=== PATIENT | male | born 2000 | race Caucasian/White ===

== ENCOUNTER 2020-08-01 11:00 | Emergency (ER) | payer OTHER ==
[~2020-08-01] VITALS: Ht 185.4 cm; Wt 111.1 kg
[2020-08-01] MEDS ORDERED: ISOVUE-370 76% 100ML VIAL As Ordered ONE (12:09)
[2020-08-01 12:12] LABS: BASO # 0.1 10^3/uL (0.0-0.2); EOS # 0.3 10^3/uL (0.0-0.5); EOS % 5.3 % (0.0-3.0); HEMATOCRIT 46.9 % (42.0-52.0); HEMOGLOBIN 15.6 g/dl (13.5-17.5); LYMPH # 1.2 10^3/uL (1.5-5.0); LYMPH % 19.1 % (24.0-44.0); MEAN CORPUSCULAR HGB CONC 33.3 g/dl (32.0-36.5); MEAN CORPUSCULAR VOLUME 84.2 fl (80.0-96.0); MONO # 0.6 10^3/uL (0.0-0.8); MONO % 9.9 % (2.0-8.0); NEUTROPHILS % 64.4 % (36.0-66.0); PLATELET COUNT, AUTOMATED 183 10^3/uL (150-450); RED BLOOD COUNT 5.57 10^6/uL (4.30-6.10); WHITE BLOOD COUNT 6.2 10^3/uL (4.0-10.0)
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
[2020-08-01 12:45] LABS: ALBUMIN 4.4 GM/DL (3.2-5.2); ALT/SGPT 94 U/L (12-78); AMYLASE 51 U/L (25-115); BILIRUBIN,DIRECT 0.3 MG/DL (0.0-0.2); BILIRUBIN,TOTAL 1.7 MG/DL (0.2-1.0); LIPASE 90 U/L (73-393); TOTAL PROTEIN 7.6 GM/DL (6.4-8.2)
[2020-08-01 13:18] LABS: MONO REFLEX EBV COMP NEGATIVE (NEGATIVE)
[2020-08-01 14:15] LABS: HEPATITIS B SURFACE ANTIGEN NEGATIVE (NEGATIVE)
[2020-08-01 14:43] LABS: HEPATITIS B CORE ANTIBODY IGM NEGATIVE (NEGATIVE)
[2020-08-01 14:45] LABS: HEPATITIS A ANTIBODY IGM NEGATIVE (NEGATIVE)
--- NOTE | 2020-08-01 14:48 | REP ---
INDICATION: inc bili and LFTs, check liver, gb, spleen please. COMPARISON: None. TECHNIQUE: Transabdominal ultrasound FINDINGS: Multiple ultrasonographic images of the liver show the hepatic parenchymal echo pattern to be within normal limits. There is no intrahepatic or extrahepatic ductal dilatation. The common bile duct measures 3 mm. Multiple ultrasonographic images of the gallbladder show no abnormal echogenic foci within the gallbladder lumen, gallbladder wall thickening, or pericholecystic edema. The imaged portion of the pancreas is within normal limits. The spleen measures 15.3 x 13.9 x5.7 cm. No splenic or perisplenic abnormalities are noted. The right kidney measures 10 x 6.3 x 5.2 cm. The renal cortical echotexture is within normal limits. Corticomedullary differentiation is preserved. There is no hydronephrosis. There are no masses. The left kidney measures 11.9 x 4.9 x 4 cm. The renal cortical echotexture is within normal limits. Corticomedullary differentiation is preserved. There is no hydronephrosis. There are no masses. The imaged portion of the abdominal aorta is within normal limits. There is no evidence of free fluid. IMPRESSION: Complete abdominal ultrasonography is within normal limits <Electronically signed by Neymar Bhatt > 08/01/20 [id number]
[2020-08-01 15:22] VITALS: BP 133/84
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
[2020-08-04 13:09] LABS: EBV VIRAL CAPSID AG IgM <36.0 U/mL (0.0-35.9)
== END 2020-08-01 15:24 | disposition home or self-care (01) ==
LOC: M ED 11:00
DX: S09.90XA Unspecified injury of head, initial encounter (principal); V43.52XA Car driver injured in collision with other type car in traffic accident, initial encounter; Y92.9 Unspecified place or not applicable; Y93.9 Activity, unspecified; Y99.9 Unspecified external cause status; F51.9 Sleep disorder not due to a substance or known physiological condition, unspecified; E80.6 Other disorders of bilirubin metabolism; R74.02 Elevation of levels of lactic acid dehydrogenase [LDH]; B35.4 Tinea corporis
CPT/HCPCS: 70450; 72125; 74177; 76700; 80047; 80076; 82150; 83690; 85025; 86308; 86664; 86665; 86705; 86709; 86803; 87340; 99284; Q9967

== ENCOUNTER 2020-08-04 22:34 | Emergency (ER) | payer OTHER ==
[~2020-08-04] VITALS: Ht 185.4 cm; Wt 111.2 kg
[2020-08-04] MEDS ORDERED: TOLN1CRE23 TOP (22:53)
[2020-08-05] MEDS ORDERED: ONDANSETRON 4MG/2ML VIAL IV ONE (00:55)
[2020-08-05] MEDS ORDERED: GI COCKTAIL 50ML BTL(HYOSCYAMINE/MAALOX/LIDOCAINE VISCOUS)(1:3:1) PO ONE (00:55)
[2020-08-05] MEDS ORDERED: NS 1,000 ML IV ONE (00:55)
[2020-08-05] MEDS ORDERED: DICYCLOMINE 10 MG CAP PO ONE (00:55)
[2020-08-05 01:16] LABS: BASO # 0.1 10^3/uL (0.0-0.2); BASO % 0.9 % (0.0-1.0); EOS # 0.2 10^3/uL (0.0-0.5); EOS % 4.4 % (0.0-3.0); LYMPH # 1.1 10^3/uL (1.5-5.0); LYMPH % 20.9 % (24.0-44.0); MEAN CORPUSCULAR HEMOGLOBIN 27.7 pg (27.0-33.0); MEAN CORPUSCULAR HGB CONC 33.3 g/dl (32.0-36.5); MEAN CORPUSCULAR VOLUME 83.2 fl (80.0-96.0); MONO # 0.5 10^3/uL (0.0-0.8); MONO % 9.2 % (2.0-8.0); NEUTROPHILS # 3.5 10^3/uL (1.5-8.5); NEUTROPHILS % 64.6 % (36.0-66.0); PLATELET COUNT, AUTOMATED 178 10^3/uL (150-450); RED BLOOD COUNT 5.77 10^6/uL (4.30-6.10); WHITE BLOOD COUNT 5.5 10^3/uL (4.0-10.0)
[2020-08-05 01:52] LABS: ALBUMIN 4.4 GM/DL (3.2-5.2); BILIRUBIN,DIRECT 0.3 MG/DL (0.0-0.2); BILIRUBIN,TOTAL 1.7 MG/DL (0.2-1.0); TOTAL PROTEIN 8.1 GM/DL (6.4-8.2)
[2020-08-05] MEDS ORDERED: ONDA4TAB6 PO (02:10)
--- NOTE | 2020-08-05 03:12 | REPVR ---
PROCEDURE INFORMATION: Exam: XR Complete Acute Abdomen Series Exam date and time: 08/05/20 (1:49am) Age: 20 years old Clinical indication: Diffuse abdominal pain and vomiting TECHNIQUE: Imaging protocol: XR complete acute abdomen series, including 2 or more views of the abdomen and a single view chest COMPARISON: CT ABDOMEN PELVIS of 08/01/20 FINDINGS: Accompanying chest film demonstrates clear lung somers. Normal heart size. No focal infiltrates. Flat and upright abdominal films demonstrate a nonspecific and non-obstructed bowel gas pattern. No free air. No abnormal mass. Splenomegaly (also seen on recent CT scan). IMPRESSION: No acute findings. Clear lung somers. No definite bowel obstruction. No free air. Splenomegaly. Electronically signed by: Perlita Smith On 08/05/2020 03:12:09 AM
[2020-08-05 03:15] VITALS: BP 137/81
[2020-08-05] MEDS ORDERED: DICY10SO PO (03:20)
[2020-08-05] MEDS ORDERED: PEPC1TAB5 PO (03:20)
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
== END 2020-08-05 03:50 | disposition home or self-care (01) ==
LOC: M ED 22:34
DX: K58.9 Irritable bowel syndrome, unspecified (principal); R19.7 Diarrhea, unspecified; R16.1 Splenomegaly, not elsewhere classified
CPT/HCPCS: 74021; 80047; 80076; 83690; 85025; 99284; J2405

== ENCOUNTER 2021-12-18 21:26 | Emergency (ER) | payer OTHER ==
[~2021-12-18] VITALS: Ht 182.9 cm; Wt 118.2 kg
[~2021-12-18 21:26] MED LIST: DICY10SO PO; ONDA4TAB6 PO; PEPC1TAB5 PO; TOLN1CRE23 TOP
[2021-12-19 01:06] LABS: BASO % 0.4 % (0.0-1.0); EOS # 0.1 10^3/uL (0.0-0.5); EOS % 1.6 % (0.0-3.0); HEMATOCRIT 44.8 % (42.0-52.0); HEMOGLOBIN 14.8 g/dl (13.5-17.5); LYMPH # 1.6 10^3/uL (1.5-5.0); LYMPH % 19.3 % (24.0-44.0); MEAN CORPUSCULAR HEMOGLOBIN 28.1 pg (27.0-33.0); MEAN CORPUSCULAR VOLUME 85.2 fl (80.0-96.0); MONO # 0.5 10^3/uL (0.0-0.8); NEUTROPHILS % 72.3 % (36.0-66.0); PLATELET COUNT, AUTOMATED 192 10^3/uL (150-450); RED BLOOD COUNT 5.26 10^6/uL (4.30-6.10); WHITE BLOOD COUNT 8.3 10^3/uL (4.0-10.0)
[2021-12-19 01:43] LABS: BLOOD UREA NITROGEN 12 MG/DL (7-18); CALCIUM LEVEL 9.2 MG/DL (8.5-10.1); CARBON DIOXIDE LEVEL 26 MEQ/L (21-32); CHLORIDE LEVEL 106 MEQ/L (98-107); CREATININE FOR GFR 0.85 MG/DL (0.70-1.30); ETHYL ALCOHOL (ETHANOL) 0.036 % (0.000-0.010); GLOMERULAR FILTRATION RATE > 60.0 (>60); GLUCOSE, FASTING 99 MG/DL (70-100); POTASSIUM SERUM 4.4 MEQ/L (3.5-5.1); SODIUM LEVEL 140 MEQ/L (136-145)
[2021-12-19 02:57] VITALS: BP 140/76
== END 2021-12-19 03:22 | disposition home or self-care (01) ==
LOC: M ED 21:26
DX: F10.20 Alcohol dependence, uncomplicated (principal); R11.10 Vomiting, unspecified; Y90.0 Blood alcohol level of less than 20 mg/100 ml

== ENCOUNTER 2022-02-12 10:52 | Emergency (ER) | payer OTHER ==
[2022-02-12 15:05] LABS: BASO % 0.2 % (0.0-1.0); EOS % 0.4 % (0.0-3.0); HEMATOCRIT 42.5 % (42.0-52.0); HEMOGLOBIN 14.7 g/dl (13.5-17.5); LYMPH # 0.9 10^3/uL (1.5-5.0); LYMPH % 9.5 % (24.0-44.0); MEAN CORPUSCULAR HEMOGLOBIN 28.7 pg (27.0-33.0); MEAN CORPUSCULAR HGB CONC 34.6 g/dl (32.0-36.5); MEAN CORPUSCULAR VOLUME 82.8 fl (80.0-96.0); MONO # 0.7 10^3/uL (0.0-0.8); MONO % 7.2 % (2.0-8.0); NEUTROPHILS # 7.6 10^3/uL (1.5-8.5); NEUTROPHILS % 82.1 % (36.0-66.0); PLATELET COUNT, AUTOMATED 157 10^3/uL (150-450); RED BLOOD COUNT 5.13 10^6/uL (4.30-6.10); WHITE BLOOD COUNT 9.3 10^3/uL (4.0-10.0)
[2022-02-12 17:09] LABS: AMPHETAMINES LEVEL URINE NEGATIVE (NEGATIVE); BARBITURATES URINE NEGATIVE (NEGATIVE); BENZODIAZEPINES URINE NEGATIVE (NEGATIVE); CANNABINOIDS URINE NEGATIVE (NEGATIVE); COCAINE METABOLITE URINE NEGATIVE (NEGATIVE); METHADONE URINE NEGATIVE (NEGATIVE); OPIATES URINE NEGATIVE (NEGATIVE); PHENCYCLIDINE URINE NEGATIVE (NEGATIVE)
[2022-02-12 17:55] VITALS: BP 140/76
== END 2022-02-12 17:55 | disposition home or self-care (01) ==
LOC: EDBD 10:52 → M ED 10:52
DX: Z04.1 Encounter for examination and observation following transport accident (principal); R55 Syncope and collapse; R11.10 Vomiting, unspecified; V47.5XXA Car driver injured in collision with fixed or stationary object in traffic accident, initial encounter; R56.9 Unspecified convulsions

== ENCOUNTER 2022-06-18 06:59 | Emergency (ER) | payer OTHER ==
[~2022-06-18] VITALS: Ht 182.9 cm; Wt 125.0 kg
[2022-06-18] MEDS ORDERED: KEPP500T13 PO (07:27)
[2022-06-18 07:30] LABS: BASO # 0.1 10^3/uL (0.0-0.2); BASO % 1.1 % (0.0-1.0); EOS # 0.3 10^3/uL (0.0-0.5); EOS % 5.7 % (0.0-3.0); HEMATOCRIT 51.3 % (42.0-52.0); LYMPH # 1.5 10^3/uL (1.5-5.0); LYMPH % 32.1 % (24.0-44.0); MEAN CORPUSCULAR HGB CONC 33.1 g/dl (32.0-36.5); MEAN CORPUSCULAR VOLUME 84.4 fl (80.0-96.0); MONO # 0.5 10^3/uL (0.0-0.8); MONO % 9.6 % (2.0-8.0); NEUTROPHILS # 2.4 10^3/uL (1.5-8.5); NEUTROPHILS % 51.1 % (36.0-66.0); PLATELET COUNT, AUTOMATED 151 10^3/uL (150-450); RED BLOOD COUNT 6.08 10^6/uL (4.30-6.10); WHITE BLOOD COUNT 4.7 10^3/uL (4.0-10.0)
[2022-06-18 07:57] LABS: ETHYL ALCOHOL (ETHANOL) 0.007 % (0.000-0.010)
[2022-06-18 08:13] LABS: ALBUMIN 4.2 G/DL (3.2-5.2); ALKALINE PHOSPHATASE 97 U/L (46-116); ALT/SGPT 262 U/L (7.0-40); AST/SGOT 64 U/L (<34); BILIRUBIN,TOTAL 0.8 MG/DL (0.3-1.2); BLOOD UREA NITROGEN 13 MG/DL (9-23); CALCIUM LEVEL 9.2 MG/DL (8.5-10.1); CARBON DIOXIDE LEVEL 28 MMOL/L (20-31); CHLORIDE LEVEL 103 MMOL/L (98-107); CREATININE FOR GFR 0.96 MG/DL (0.70-1.30); GLOMERULAR FILTRATION RATE > 60.0 (>60); GLUCOSE, FASTING 157 MG/DL (60-100); POTASSIUM SERUM 4.5 MMOL/L (3.5-5.1); SODIUM LEVEL 138 MMOL/L (136-145); TOTAL PROTEIN 7.6 G/DL (5.7-8.2)
[2022-06-18 09:35] VITALS: BP 140/74
== END 2022-06-18 09:49 | disposition home or self-care (01) ==
LOC: M ED 06:59 → EDBD 06:59 → M ED 09:49
DX: Z04.1 Encounter for examination and observation following transport accident (principal); R56.9 Unspecified convulsions; Z79.899 Other long term (current) drug therapy

== ENCOUNTER 2022-12-25 13:39 | Emergency (ER) | payer OTHER ==
[~2022-12-25] VITALS: Ht 182.9 cm; Wt 124.5 kg
[~2022-12-25 13:39] MED LIST changes: +KEPP500T13 PO
[2022-12-25] MEDS ORDERED: DIVA500T94 (13:56)
[2022-12-25] MEDS ORDERED: LEVE500T88 (13:56)
[2022-12-25] MEDS ORDERED: ONDANSETRON 4MG ORAL DISINTEGRATING TAB PO ONE (14:55)
[2022-12-25] MEDS ORDERED: ACETAMINOPHEN TAB 650MG DOSE (2X325MG) PO ONE (14:55)
[2022-12-25 14:56] LABS: VENOUS BASE EXCESS -2.2 (-2.0-2.0); VENOUS HCO3 24.6 MMOL/L (23.0-27.0); VENOUS O2 SATURATION 61.9 % (60.0-80.0); VENOUS PARTIAL PRESSURE CO2 49.5 mmHg (38.0-50.0); VENOUS PARTIAL PRESSURE O2 35.1 mmHg (30.0-50.0); VENOUS PH 7.315 UNITS (7.330-7.430); VENOUS STANDARD HCO3 21.7 MMOL/L; VENOUS TOTAL CO2 26.2 MMOL/L (24.0-28.0)
[2022-12-25 14:57] LABS: IONIZED CALCIUM 4.7 MG/DL (4.5-5.3)
[2022-12-25 15:03] LABS: BASO # 0.1 10^3/uL (0.0-0.2); BASO % 0.8 % (0.0-1.0); EOS # 0.2 10^3/uL (0.0-0.5); EOS % 2.6 % (0.0-3.0); HEMATOCRIT 45.8 % (42.0-52.0); HEMOGLOBIN 15.8 g/dl (13.5-17.5); MEAN CORPUSCULAR HEMOGLOBIN 28.6 pg (27.0-33.0); MEAN CORPUSCULAR HGB CONC 34.5 g/dl (32.0-36.5); MONO # 0.8 10^3/uL (0.0-0.8); MONO % 10.5 % (2.0-8.0); NEUTROPHILS # 5.5 10^3/uL (1.5-8.5); NEUTROPHILS % 72.8 % (36.0-66.0); PLATELET COUNT, AUTOMATED 131 10^3/uL (150-450); RED BLOOD COUNT 5.52 10^6/uL (4.30-6.10); WHITE BLOOD COUNT 7.6 10^3/uL (4.0-10.0)
[2022-12-25 15:11] LABS: HEMOGLOBIN A1c 10.2 % (4.0-6.0)
[2022-12-25 15:24] LABS: APPEARANCE, URINE CLEAR (CLEAR); BACTERIA, URINE AUTO NEGATIVE (NEGATIVE); BILIRUBIN, URINE AUTO NEGATIVE (NEGATIVE); BLOOD, URINE BLOOD NEGATIVE (NEGATIVE); COLOR, URINE YELLOW (YELLOW); GLUCOSE, URINE (UA) AUTO 3+ mg/dL (NEGATIVE); KETONE, URINE AUTO TRACE mg/dL (NEGATIVE); LEUKOCYTE ESTERASE, URINE AUTO NEGATIVE (NEGATIVE); NITRITE, URINE AUTO NEGATIVE (NEGATIVE); PROTEIN, URINE AUTO 1+ mg/dL (NEGATIVE); RBC, URINE AUTO 0 /HPF (0-3); SPECIFIC GRAVITY URINE AUTO 1.033 (1.002-1.035); SQUAMOUS EPITHELIAL CELL UR AU 0 /HPF (0-6); UROBILINOGEN, URINE AUTO 0.2 mg/dL (0.0-2.0); WBC, URINE AUTO 1 /HPF (0-3)
[2022-12-25] MEDS ORDERED: NS 1,000 ML IV ONE (15:25)
[2022-12-25 15:29] LABS: ETHYL ALCOHOL (ETHANOL) 0.005 % (0.000-0.010); VALPROIC ACID (DEPAKOTE) < 3.0 UG/ML (50.0-100.0)
[2022-12-25 15:31] LABS: ALBUMIN 4.1 G/DL (3.2-5.2); ALKALINE PHOSPHATASE 146 U/L (46-116); ALT/SGPT 537 U/L (7.0-40); AST/SGOT 224 U/L (<34); BILIRUBIN,DIRECT 0.4 MG/DL (<0.4); BILIRUBIN,TOTAL 1.3 MG/DL (0.3-1.2); BLOOD UREA NITROGEN 14 MG/DL (9-23); CALCIUM LEVEL 8.9 MG/DL (8.5-10.1); CARBON DIOXIDE LEVEL 27 MMOL/L (20-31); CHLORIDE LEVEL 99 MMOL/L (98-107); CREATININE FOR GFR 0.84 MG/DL (0.70-1.30); GLOMERULAR FILTRATION RATE > 60.0 (>60); GLUCOSE, FASTING 369 MG/DL (60-100); MAGNESIUM LEVEL 2.2 MG/DL (1.8-2.4); POTASSIUM SERUM 4.5 MMOL/L (3.5-5.1); SODIUM LEVEL 136 MMOL/L (136-145); TOTAL PROTEIN 7.1 G/DL (5.7-8.2)
[2022-12-25 15:52] LABS: AMPHETAMINES LEVEL URINE NEGATIVE (NEGATIVE); BARBITURATES URINE NEGATIVE (NEGATIVE); BENZODIAZEPINES URINE NEGATIVE (NEGATIVE); CANNABINOIDS URINE NEGATIVE (NEGATIVE); COCAINE METABOLITE URINE NEGATIVE (NEGATIVE); METHADONE URINE NEGATIVE (NEGATIVE); OPIATES URINE NEGATIVE (NEGATIVE); PHENCYCLIDINE URINE NEGATIVE (NEGATIVE)
[2022-12-25] MEDS ORDERED: VALPROATE SOD INJ 1,000 MG in D5W 50 ML IV ONE (16:25)
[2022-12-25] MEDS ORDERED: METF-839 PO (18:31)
[2022-12-25] MEDS ORDERED: DEPA1TAB3 PO (18:31)
[2022-12-25] MEDS ORDERED: metFORMIN (GLUCOPHAGE) 500MG TAB PO ONE (18:35)
[2022-12-25 18:39] LABS: ACETONE/KETONE 0.22 MMOL/L (0.02-0.27)
[2022-12-25 18:45] VITALS: BP 142/63; TEMP 97.2; O2SAT 98
[2022-12-30] MEDS ORDERED: METF10004 PO (14:28)
== END 2022-12-25 18:55 | disposition home or self-care (01) ==
LOC: EDBD 13:39 → M ED 13:39
DX: G40.909 Epilepsy, unspecified, not intractable, without status epilepticus (principal); E11.9 Type 2 diabetes mellitus without complications; Z79.4 Long term (current) use of insulin; Z79.899 Other long term (current) drug therapy

== ENCOUNTER 2023-03-13 11:41 | Emergency (ER) | payer OTHER ==
[~2023-03-13] VITALS: Ht 182.9 cm; Wt 118.2 kg
[~2023-03-13 11:41] MED LIST changes: +DEPA1TAB3 PO; +DIVA500T94; +LEVE500T88; +METF-839 PO; +METF10004 PO
[2023-03-13 11:49] VITALS: TEMP 97.2
[2023-03-13] MEDS ORDERED: TRUL0.5I SC (11:56)
[2023-03-13] MEDS ORDERED: VIMP100T PO (11:56)
[2023-03-13 12:58] LABS: HEMOGLOBIN 16.3 g/dl (13.5-17.5); MEAN CORPUSCULAR HEMOGLOBIN 28.2 pg (27.0-33.0); PLATELET COUNT, AUTOMATED 179 10^3/uL (150-450); RED BLOOD COUNT 5.78 10^6/uL (4.30-6.10); WHITE BLOOD COUNT 6.1 10^3/uL (4.0-10.0)
[2023-03-13 13:27] LABS: ETHYL ALCOHOL (ETHANOL) 0.004 % (0.000-0.010)
[2023-03-13 13:29] LABS: BLOOD UREA NITROGEN 13 MG/DL (9-23); CARBON DIOXIDE LEVEL 29 MMOL/L (20-31); CHLORIDE LEVEL 106 MMOL/L (98-107); CREATININE FOR GFR 0.86 MG/DL (0.70-1.30); GLOMERULAR FILTRATION RATE > 60.0 (>60); GLUCOSE, FASTING 118 MG/DL (60-100); POTASSIUM SERUM 4.5 MMOL/L (3.5-5.1); SODIUM LEVEL 141 MMOL/L (136-145)
[2023-03-13 13:56] LABS: AMPHETAMINES LEVEL URINE NEGATIVE (NEGATIVE); BARBITURATES URINE NEGATIVE (NEGATIVE); BENZODIAZEPINES URINE NEGATIVE (NEGATIVE); CANNABINOIDS URINE NEGATIVE (NEGATIVE); COCAINE METABOLITE URINE NEGATIVE (NEGATIVE); METHADONE URINE NEGATIVE (NEGATIVE); OPIATES URINE NEGATIVE (NEGATIVE); PHENCYCLIDINE URINE NEGATIVE (NEGATIVE)
[2023-03-13 14:30] VITALS: BP 130/61; O2SAT 96
[2023-03-13] MEDS ORDERED: LEVE500T88 PO (14:42)
[2023-03-13] MEDS ORDERED: KEPP750T3 PO (15:18)
[2023-03-13] MEDS ORDERED: KEPP500T13 PO (15:18)
[2023-03-18 01:07] LABS: LACOSAMIDE LEVEL 3.6 ug/mL (5.0-10.0); LEVETIRACETAM (KEPPRA) 8.6 ug/mL (10.0-40.0)
== END 2023-03-13 15:06 | disposition home or self-care (01) ==
LOC: EDBD 11:41 → M ED 11:41
DX: G40.909 Epilepsy, unspecified, not intractable, without status epilepticus (principal); S01.81XA Laceration without foreign body of other part of head, initial encounter; Y92.009 Unspecified place in unspecified non-institutional (private) residence as the place of occurrence of the external cause; Y93.9 Activity, unspecified; Y99.9 Unspecified external cause status; Z79.810 Long term (current) use of selective estrogen receptor modulators (SERMs); Z79.899 Other long term (current) drug therapy

== ENCOUNTER 2023-07-09 12:46 | Emergency (ER) | payer OTHER ==
[~2023-07-09] VITALS: Ht 185.4 cm; Wt 110.3 kg
[~2023-07-09 12:46] MED LIST changes: +KEPP750T3 PO; +LEVE500T88 PO; +TRUL0.5I SC; +VIMP100T PO
[2023-07-09 13:27] LABS: HEMOGLOBIN 16.5 g/dl (13.5-17.5); RED BLOOD COUNT 5.81 10^6/uL (4.30-6.10)
[2023-07-09 13:28] LABS: BASO % 0.8 % (0.0-1.0); HEMATOCRIT 48.5 % (42.0-52.0); MEAN CORPUSCULAR HEMOGLOBIN 28.4 pg (27.0-33.0); MEAN CORPUSCULAR VOLUME 83.5 fl (80.0-96.0); MONO % 7.8 % (2.0-8.0); NEUTROPHILS % 66.1 % (36.0-66.0); PLATELET COUNT, AUTOMATED 171 10^3/uL (150-450)
[2023-07-09 13:29] LABS: BASO # 0.1 10^3/uL (0.0-0.2); EOS # 0.4 10^3/uL (0.0-0.5); LYMPH # 1.2 10^3/uL (1.5-5.0); MONO # 0.5 10^3/uL (0.0-0.8)
[2023-07-09 13:55] LABS: BLOOD UREA NITROGEN 10 MG/DL (9-23); CALCIUM LEVEL 9.6 MG/DL (8.5-10.1); CARBON DIOXIDE LEVEL 28 MMOL/L (20-31); CHLORIDE LEVEL 105 MMOL/L (98-107); CREATININE FOR GFR 0.89 MG/DL (0.70-1.30); GLOMERULAR FILTRATION RATE > 60.0 (>60); GLUCOSE, FASTING 90 MG/DL (60-100); POTASSIUM SERUM 4.8 MMOL/L (3.5-5.1); SODIUM LEVEL 138 MMOL/L (136-145)
[2023-07-09] MEDS ORDERED: KEPP500T13 PO (14:34)
[2023-07-09 14:44] VITALS: BP 116/62; TEMP 99.4; O2SAT 99
== END 2023-07-09 14:51 | disposition home or self-care (01) ==
LOC: M ED 12:46 → EDBD 12:46 → M ED 14:51
DX: G40.909 Epilepsy, unspecified, not intractable, without status epilepticus (principal); Z79.4 Long term (current) use of insulin; Z79.899 Other long term (current) drug therapy